=== PATIENT | male | born 1975 | race Caucasian/White ===

== ENCOUNTER 2016-10-31 05:09 | Day surgery (SDC) | payer BC ==
[2016-10-22 15:40] VITALS: BMI 28.2
[2016-10-31] MEDS ORDERED: ROPIVACAINE HCL 0.5% 30ML VIAL ONE (08:47)
[2016-10-31] MEDS ORDERED: MIDAZOLAM HCL 2 MG/2 ML SINGLE DOSE VIAL ONE ×2 (08:48)
--- NOTE | 2016-10-31 09:10 | HP ---
[facility] - Chief Complaint Chief Complaint: left shoulder pain - Past Medical History Allergies/Adverse Reactions: Allergies Allergy/AdvReac Type Severity Reaction Status Date / Time No Known Allergies Allergy Verified 10/31/16 07:52 - Current Medications Current Medications: Home Medications Medication Instructions Recorded Fenofibrate Nanocrystallized 145 mg PO HS 10/31/16 [Fenofibrate] Oxycodone HCl/Acetaminophen 1 - 2 tab PO Q6H #50 tab MDD 8 10/31/16 [Percocet 5-325 mg Tablet -] Satellite Physical Exam - Physical Examination Vital Signs: Vital Signs Period Temp Pulse Resp BP Sys/Clemente Pulse Ox Last 24 Hr 98.6 F 93 18 152/96 99 General Appearance: Well Nourished, Well Developed, Alert & Oriented x3 ENT: Clear Lung: Normal air movement Heart: Regular rate & rhythm Extremities: Other (left shoulder- + ttp, decr rom, + apprehension, + felipa, + obriens, nvi MRI + labral tear) Neurological: Intact, Alert, Oriented Satellite Impression/Plan - Impression/Plan Impression: left shoulder labral tear Operative Procedure: left shoulder arthroscopy with labral repair Date to be Performed: 10/31/16
[2016-10-31] MEDS ORDERED: PROPOFOL 20 ML ONE (09:31)
[2016-10-31] MEDS ORDERED: DEXAMETHASONE SOD PHOSPHATE 4 MG/1 ML VIAL ONE (09:33)
[2016-10-31] MEDS ORDERED: ceFAZolin SODIUM 1 GM VIAL ONE (09:59)
[2016-10-31] MEDS ORDERED: ceFAZolin SODIUM 1 GM VIAL IVPB ONE (10:00)
[2016-10-31] MEDS ORDERED: KETOROLAC TROMETHAMINE 30 MG/1 ML VIAL ONE ×2 (10:45→11:55)
--- NOTE | 2016-10-31 10:51 | OP ---
Operative Note - Note: Operative Date: 10/31/16 ([facility]) Pre-Operative Diagnosis: left shoulder labral tear Operation: left shoulder arthroscopy with labral repair Implants: 3 arthrex pushlocks Post-Operative Diagnosis: Same as Pre-op Surgeon: Nadeem Steen Human Resources Officer: Walker Pino Anesthesiologist/UNEMPLOYMENT INSURANCE DIRECTOR: Garret Sears Anesthesia: General, Local Specimens Removed: shavings Estimated Blood Loss (mls): 5 Operative Report Dictated: Yes
[2016-10-31] MEDS ORDERED: oxyCODONE HCL 5 MG TABLET PO PRN (10:58)
[2016-10-31] MEDS ORDERED: ONDANSETRON 4 MG/2 ML VIAL IVPUSH PRN (10:58)
[2016-10-31] MEDS ORDERED: LACTATED RINGERS SOLUTION 1,000 ML IV SCH (11:00)
[2016-10-31 12:23] VITALS: TEMP 97.7
--- NOTE | 2016-10-31 12:42 | OP ---
DATE OF OPERATION: 10/31/2016 PREOPERATIVE DIAGNOSIS: Left superior labrum anterior to posterior tear. POSTOPERATIVE DIAGNOSIS: Left superior labrum anterior to posterior tear. PROCEDURE: Left superior labrum anterior to posterior repair arthroscopic. SURGICAL ATTENDING: Nadeem Steen MD ASSEMBLER FINGER BUFFS: SELIN Choudhary ANESTHESIA: Scalene and general. CLOSURE: Three FiberSticks with PushLock anchors, 3-0 nylon for the skin. ESTIMATED BLOOD LOSS: Negligible. COMPLICATIONS: None. CONDITION: Recovery room in stable condition. DESCRIPTION OF OPERATIVE PROCEDURE: The patient was taken to the operating room on October 31, 2016, and general anesthesia and scalene block was administered per the anesthesiologist, Dr. Hanks, prior to the case. The patient was placed in beach chair position with all prominences well padded. The left shoulder was prepped and draped in the usual sterile fashion. First, a diagnostic arthroscopy of the glenohumeral joint was performed. A posterior portal was made 2 fingerbreadths below the acromion first with a 15 blade followed by blunt trocar. An anterior portal was made in the anterior triangle first with a spinal needle followed by a blunt trocar. Circumferential exam of the glenohumeral joint revealed the following: Intact glenoid and humeral head articular cartilage, intact subscapularis towards insertion. No loose bodies in the axillary pouch. The rest of the rotator cuff was found to be intact as well. Biceps intact and biceps anchor was dropped inferiorly. The rest of the labrum was intact. The interval between the superior glenoid and the superior labrum was cleaned with shaver and with a rasp to stimulate good bleeding bone for good reparative surface. Three FiberStick anchors were placed around the labrum. They were retrieved through an anterior portal, which was made with a spinal needle followed by a 15 blade and a blunt trocar just above the subscapularis tendon. Each individual suture was fixated to the glenoid using a PushLock anchor, which was drilled and then PushLocked with the suture. There was one suture at the 11 o'clock position, one at the 11:30 position, and one at the 10:30 position reducing the labrum to the superior glenoid. Probing of the labrum revealed good repair of the labrum to the superior glenoid. Sutures were cut snug. Shoulders was drained of fluid. Trocars were removed. The portals were closed with 3-0 nylon. Sterile pressure dressing was applied over the shoulder followed by a shoulder immobilizer. The patient was awakened from anesthesia and transferred to the recovery room in stable condition. No complications. Estimated blood loss negligible. Danilo ARMAS/[id number]
[2016-10-31 13:54] VITALS: BP 146/86; PULSE 90
--- NOTE | 2016-11-03 13:49 | PATH ---
Surgical Pathology Report Patient Name: ADELITA JARQUIN [facility]. Rec. #: [id number] /Age/Gender: 1975 (Age: 41) / M Account: [id number] Location: [facility] Taken: 10/31/2016 Received: 10/31/2016 Reported: 11/03/2016 Physicians: Nadeem Steen M.D. Specimen(s) Received SHAVINGS LEFT SHOULDER Clinical History Left impingement syndrome Final Diagnosis LEFT SHOULDER, ARTHROSCOPIC SHAVING: PORTIONS OF SYNOVIUM, CARTILAGE, SKELETAL MUSCLE AND BONE CONSISTENT WITH ARTHROSCOPIC SHAVINGS. Electronically Signed Lionel Garvey M.D. Gross Description Received in formalin, labeled "left shoulder shavings," is a 1.5 x 1.3 x 0.2 cm aggregate of wallace soft tissue fragments. The specimen is entirely submitted in one cassette. 10/31/201610/31/2016
== END 2016-10-31 14:02 | disposition home or self-care (01) ==
LOC: JASU-SURG 05:09
PROVIDERS: ATTEND Orthopaedic Surgery
PROC: 0MM24ZZ Reattachment of Left Shoulder Bursa and Ligament, Percutaneous Endoscopic Approach (ICD-10-PCS; principal; 2016-10-31 09:30)
DX: S43.432A Superior glenoid labrum lesion of left shoulder, initial encounter (principal); X58.XXXA Exposure to other specified factors, initial encounter; Y93.9 Activity, unspecified; Y92.9 Unspecified place or not applicable; Y99.9 Unspecified external cause status
CPT/HCPCS: 88304-TC; 94760